=== PATIENT | female | born 1985 | race Caucasian/White ===

== ENCOUNTER 2024-10-05 09:10 | Emergency (ER) | payer MEDICAID, OTHER ==
[~2024-10-05] VITALS: Ht 177.8 cm; Wt 58.2 kg
[~2024-10-05 09:10] MED LIST: CITA-144 PO
[2024-10-05 09:34] VITALS: TEMP 97.6
[2024-10-05] MEDS ORDERED: ALPR-707 PO (09:38)
[2024-10-05] MEDS ORDERED: METH5SOL20 PO (09:38)
[2024-10-05 12:00] VITALS: BP 105/64; PULSE 76; RESP 17; O2SAT 99
== END 2024-10-05 12:47 | disposition home or self-care (01) ==
LOC: EMS 09:21 → EDBD 09:21 → EMS 12:47
DX: F11.20 Opioid dependence, uncomplicated (principal); F32.A Depression, unspecified; F41.9 Anxiety disorder, unspecified
CPT/HCPCS: 99283; Z7502